=== PATIENT | male | born 1990 | race Caucasian/White ===

== ENCOUNTER 2025-04-14 17:35 | Outpatient (CLI) | payer OTHER, SELFPAY | END 2025-04-14 17:36 | disposition home or self-care (01) | LOC: AMB 04-19 16:19 | PROVIDERS: Visit Provider Family Medicine | DX: S09.90XA Unspecified injury of head, initial encounter (principal); V09.9XXA Pedestrian injured in unspecified transport accident, initial encounter; Y92.414 Local residential or business street as the place of occurrence of the external cause; Y93.89 Activity, other specified | CPT/HCPCS: A0425; A0429 ==

== ENCOUNTER 2025-04-14 18:01 | Emergency (ER) | payer OTHER, SELFPAY ==
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
--- OUTSIDE RECORDS SUMMARY | 2025-04-14 18:04 | XMS_ITS | Clinical Summary ---
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 buprenorphine-n aloxone (SUBOXONE) 8-2 mg sublingual filmIndications :Opioid use disorder Place 1 Film under the tongue two times daily. Place film under the tongue until completely dissolved. Do not chew or swallow film. 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 Recommend inpatient treatment if desires MAT in future. Encounters Date Type Department Care Team Description 01/14/2025 5:35 PM CDT Office Visit [facility] [address] [facility] [place] [phone] Karen Whiting MD Follow Up (Suboxone follow up ) 01/14/2025 Travel from Last 3 Months Immunizations Immunization Administration Dates Next Due Tdap 09/07/2011 Family History Medical History Relation Name Comments Good Health Father Good Health Mother Valvular heart disease Mother surge ry to correct at age 40 Relation Name Status Comments Father Mother Social History Tobacco Use Types Packs/Day Years Used Date Smoking Tobacco: Every Day Cigarettes 0.5 10 Started: 10/19/2010; Last attempted to quit: 10/02/2020 Smokeless Tobacco: Never Tobacco Cessation:Ready to Q uit: Not Asked; Counseling Given: Not Answered Comments:smoking about 8 cigs a day as of 10/23/2024 Alcohol Use Standard Drinks/Week Comments Not Currently 0 (1 standard drink = 0.6 oz pur e alcohol) Sober since 2022 PHQ-2 Answer Date Recorded PHQ-2 TOTAL SCORE 3 08/19/2024 Social Connections Answer Date Recorded Do you often feel lonely or isolated from those around you? 0 12/07/2024 Financial Resource Strain Answer Date R ecorded Difficulty of Paying Living Expenses 3 11/23/2024 Difficulty of Paying Living Expenses Not on file 11/23/2024 Food Insecurity Answer Date Recorded Do you worry your food will run out before you are able to buy more? 1 12/07/2024 Transportation Needs Answer Date Record ed Does lack of transportation keep you from medica l appointments? 1 12/07/2024 Does lack of transportation keep you from work, meetings or getting things that you need? 1 12/07/2024 Housing Stability Answer Date Recorded What is your housing situation today? 1 12/07/2024 Utilities Answer Date Recorded Do you have trouble paying f or utilities (for example, heat, electricity, water, phone)? 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 Not on file Not on file Obstetrics History Last Filed Vital Signs Vital Sign Reading Time Taken Comments Blood Pressure 104/58 01/14/2025 5:47 PM CDT Pulse 67 01/14/2025 5:47 PM CDT Temperature 36.5 C (97.7 F) 08/15/2024 10:28 AM CDT Respiratory Rate 16 08/15/2024 10:28 AM CDT Oxygen Saturation 100% 01/14/2025 5:47 PM CDT Inhaled Oxygen Concentration - - Weight 61.2 kg (135 lb) 01/14/2025 5:47 PM CDT Height 178.3 cm (5' 10.2) 08/19/2024 10:59 AM C DT Body Mass Index 19.26 08/19/2024 10:59 AM CDT Plan of Treatment Health Maintenance Due Date Last Done Comments Hepatitis B series for 19+ ( 1 of 3 - 19+ 3-dose series) 2008 Pneumococcal series for age 6-49 (1 of 2 - PCV) 2008 HPV series for age 9-45 (1 - 3-dose SCDM series) 2016 Tetanus booster 09/06/2021 09/07/2011 Lipids for age 35-44 2024 Influenza Vaccine (#1) 2025 BMI (ht and wt on same day) for age 18+ 08/19/2025 0 08/19/2024, 10/19/2020 Depression screening for age 12+ 08/19/2025 08/20/19 25, 10/19/2020 RSV vaccine for adults or pr egnancy (1 - 1-dose 75+ series) 2064 HIV for age 15-65 Completed 10/04/2023 Hepatitis C screening for age 18-79 Completed 10/03 Procedures Procedure Name Priority Date/Time Associated Diagnosis Comments ANTI HIV 1/2 Routine 10/04/2023 4:10 PM CDT Opioid use disorder ANTI HCV Routine 10/04/2023 4:10 PM CDT Opioid use disorder from Last 3 Months or Most Recently Relevant to Health Maintenance Results * ANTI HCV (10/04/2023 4:10 PM CDT) HEPATITIS C ANTIBODY Non-Reacti ve Non-React juan 10/07/2023 2:57 PM CDT [facility] Comment:Please note, per www .CDC.gov: If a patient is known to be at high risk of HCV infection, or is symptomatic, and the physician's suspicion of HCV infection is high, HCV RNA testing is often employed and is of diagnostic value, even after an initial negative anti-HCV test result. Blood BLOOD SPECIMEN / Unknown Venipuncture / Unknown 10/04/2023 4:10 PM CDT 10/04/2023 4:11 PM CDT us Monisha Coon MD SEND OUTS Fi nal Result Performing Organization Address [facility] Co de Phone Number [facility] [address] [address], * ANTI HIV 1/2 (10/04/2023 4:10 PM CDT) HIV-1/HIV-2 SCREEN Non-Reacti ve Non-Reacti ve 10/07/2023 2:27 PM CDT [facility] Comment:HIV-1 p24 and HIV-1/ HIV-2 Ab Not Detected. 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
[2025-04-14 18:06] VITALS: BP 129/96; PULSE 78; RESP 20; TEMP 36.8; O2SAT 96; BMI 19.5
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
== END 2025-04-14 19:56 | disposition home or self-care (01) ==
PROVIDERS: Emergency Provider Family Medicine
DX: S32.592A Other specified fracture of left pubis, initial encounter for closed fracture (principal); S00.81XA Abrasion of other part of head, initial encounter; S00.83XA Contusion of other part of head, initial encounter; V03.10XA Pedestrian on foot injured in collision with car, pick-up truck or van in traffic accident, initial encounter; Y92.414 Local residential or business street as the place of occurrence of the external cause
CPT/HCPCS: 70450; 72192; 99284; 99285